=== PATIENT | female | born 1945 | race Caucasian/White ===

== ENCOUNTER → 2018-05-16 | Outpatient (CLI) | payer OTHER ==
[~2018-05-16] MED LIST: AMITRIPTYLINE H10 MG PO; AMLODIPINE BESYL5 MG PO; ATORVASTATIN CA20 MG PO; HYDROCODON-ACE1 EA12 PO; VERAPAMIL ER240 MG PO
--- NOTE | 2018-05-16 16:45 | Diagnostic Imaging Report ---
Exam: Head CT without contrast History: Headache, migraine without status migrainous Comparison studies: None Technique: Axial images were obtained from the skull base to the vertex. Coronal and sagittal images reconstructed from the axial data. Dose modulation, iterative reconstruction, and/or weight based adjustment of the mA/kV was utilized to reduce the radiation dose to as low as reasonably achievable. Radiation dose: Total DLP: 806 mGy*cm. Estimated effective dose: DLP x 0.015 Intravenous contrast: None Findings: Scalp: Subtle focal soft tissue thickening in the right parietal scalp may reflect scarring. No other abnormalities. Bones: No fractures. No aggressive-appearing blastic or lytic lesions. Brain sulci: Appropriate for age. Ventricles: Normal in size and configuration. No hydrocephalus. Extra-axial spaces: No masses, no fluid collection. Parenchyma: No mass, acute hemorrhage or acute or chronic cortical vascular insults. A few scattered hypodensities in the supratentorial white matter are nonspecific but most compatible with chronic microvascular ischemic changes. Sellar/suprasellar region: No abnormalities. Craniocervical junction: Patent foramen magnum. No Chiari one malformation. Included paranasal sinuses: The bilateral sphenoid sinuses are nearly completely opacified. Nonspecific layering hyperdense fluid with frothy secretions in the right maxillary sinus. Incidental findings: Atherosclerotic calcifications in the right carotid siphon. IMPRESSION: 1. No acute intracranial abnormalities. 2. Mild chronic microvascular ischemic changes. 3. Inflammatory changes in the sphenoid sinuses. Hyperdense fluid in the right maxillary sinus may reflect hemorrhage or secretions related to sinusitis. Signed by: Dr. Dayo Coleman M.D. on 05/16/2018 4:42 PM
== END ==
LOC: CT 15:02
PROVIDERS: ATTEND Family Medicine
DX: G43.909 Migraine, unspecified, not intractable, without status migrainosus (principal)
CPT/HCPCS: 70450

== ENCOUNTER → 2021-08-03 | Outpatient (CLI) | payer MEDICARE | LOC: US 07:43 | PROVIDERS: ATTEND Family Medicine | DX: R74.8 Abnormal levels of other serum enzymes (principal) | CPT/HCPCS: 76700 ==